=== PATIENT | male | born 1990 | race Two or more races ===

== ENCOUNTER 2018-05-20 14:44 | Emergency (ER) | payer MEDICAID, OTHER ==
[~2018-05-20] VITALS: Ht 167.6 cm; Wt 83.9 kg
[2018-05-20 16:53] VITALS: BP 145/85
[2018-05-20] MEDS ORDERED: IBUPROFEN 800 MG TAB PO ONE (17:30)
[2018-05-20] MEDS ORDERED: cefTRIAXone SOD 1,000 MG VL IM ONE (17:30)
== END 2018-05-20 18:11 | disposition home or self-care (01) ==
LOC: ER 14:47
DX: K04.7 Periapical abscess without sinus (principal)
CPT/HCPCS: 96372; 99283; J0696

== ENCOUNTER 2018-09-21 10:24 | Emergency (ER) | payer SELFPAY ==
[~2018-09-21] VITALS: Ht 167.6 cm; Wt 84.8 kg
[2018-09-21 11:40] VITALS: BP 136/84
== END 2018-09-21 12:44 | disposition home or self-care (01) ==
LOC: ER 10:29
DX: S00.33XA Contusion of nose, initial encounter (principal); Y08.89XA Assault by other specified means, initial encounter; Y93.89 Activity, other specified; Y99.8 Other external cause status; Y92.89 Other specified places as the place of occurrence of the external cause
CPT/HCPCS: 70160